=== PATIENT | female | born 1955 | race African-American/Black ===

== ENCOUNTER 2017-09-13 08:59 | Emergency (ER) | payer BC ==
[~2017-09-13] VITALS: Ht 170.2 cm; Wt 102.1 kg
--- NOTE | ~2017-09-13 | EKG ---
[place] [address] [facility] [place] [address] ELECTROCARDIOGRAM REPORT Name: SONIA WILKESTIE Denisa [facility] [id number] Admission: 09/13/17 Attend Phys: Discharge: 09/13/17 Date of : 59 Report #: [id number] THIS REPORT FOR: //name// [facility] ED Test Date: 2017-09-13 Test Time: 10:07:34 Pat Name: BAYRON WILKES Department: Room: Gender: F [employer] Machine Operator: EDILBERTOZEV : 1955 Requested By: Ivan Menon Order Number: [id number] MD: Gee Dumont Measurements Intervals [place] Rate: 75 P: 32 GA: 155 QRS: -12 QRSD: 79 T: 111 QT: 385 QTc: 430 Interpretive Statements Sinus rhythm Left ventricular hypertrophy with repolarization abnormality Compared to ECG 01/17/2011 21:53:27 Left ventricular hypertrophy now present T-wave abnormality now present Electronically Signed On 09-13-2017 15:53:17 CDT by Gee Dumont [email or web address] <ELECTRONICALLY SIGNED> By: Gee Dumont MD, [facility] 09/13/17 1553 [id number] Gee Dumont MD, FACC /EPI
[~2017-09-13 08:59] MED LIST: ALDACTONE50 MG PO; AMLODIPINE BESYL5 MG PO; BENICAR40 MG PO; GLUCOPHAGE1000 MG PO; PERCOCET 5-3251 EACH PO
[2017-09-13 10:08] LABS: HEMATOCRIT 35.5 % (37.0-47.0); HEMOGLOBIN 11.6 gm/dL (12.0-15.0); MCH 27.7 pg (26.0-34.0); MCHC 32.8 g/dL (28.0-37.0); MCV 84.6 fL (80.0-100.0); RBC 4.19 mil/uL (4.20-5.00); RDW 14.6 % (10.5-14.5); WBC 7.8 thou/uL (4.0-11.0)
[2017-09-13 10:10] LABS: ANION GAP 9 mmol/L (7-16); BUN 16 mg/dL (7-18); CALCIUM 8.9 mg/dL (8.5-10.1); CHLORIDE 108 mmol/L (98-107); CO2 25 mmol/L (21-32); CREATININE 0.7 mg/dL (0.6-1.0); GLUCOSE 180 mg/dL (74-106); SODIUM 142 mmol/L (136-145)
[2017-09-13 10:19] LABS: TROPONIN-I < 0.04 ng/mL (<0.06)
[2017-09-13] MEDS ORDERED: IBUPROFEN 600600 M1 PO (11:03)
[2017-09-13] MEDS ORDERED: NORVASC5 MG PO (11:03)
[2017-09-13] MEDS ORDERED: TESSALON PERLE100 MG PO (11:03)
[2017-09-13 11:16] LABS: ABSOLUTE NEUTROPHILS 3.8 thou/uL (1.4-8.2)
[2017-09-13 11:17] LABS: PLATELET COUNT 136 thou/uL (150-400); PLATELET ESTIMATE NORMAL
[2017-09-13 11:24] VITALS: BP 182/107
== END 2017-09-13 11:24 | disposition home or self-care (01) ==
LOC: ER 08:59
PROVIDERS: Nurse Practitioner
DX: R07.89 Other chest pain (principal); I10 Essential (primary) hypertension; R05 Cough; E11.9 Type 2 diabetes mellitus without complications; Z90.710 Acquired absence of both cervix and uterus; Z88.8 Allergy status to other drugs, medicaments and biological substances